=== PATIENT | female | born 1955 | race Hispanic/Latino ===

== ENCOUNTER → 2017-05-08 | Outpatient (CLI) | payer MEDICAID ==
[~2017-05-08] MED LIST: DEXA4TAB PO; ESOM40CA54 PO; FURO20TA4 PO; HYDR12.530 PO; LEVE1000 PO
== END | disposition home or self-care (01) ==
LOC: RAH 08:56
PROVIDERS: ATTEND Internal Medicine
DX: I73.9 Peripheral vascular disease, unspecified (principal); I10 Essential (primary) hypertension; M47.895 Other spondylosis, thoracolumbar region
CPT/HCPCS: 71046

== ENCOUNTER → 2017-05-26 | Outpatient (CLI) | payer MEDICAID | END | disposition home or self-care (01) | LOC: RAH 08:01 | PROVIDERS: ATTEND Urology | DX: N39.0 Urinary tract infection, site not specified (principal) | CPT/HCPCS: 74176 ==

== ENCOUNTER → 2017-06-15 | Outpatient (CLI) | payer MEDICAID | END | disposition home or self-care (01) | LOC: RAH 08:53 | PROVIDERS: ATTEND Internal Medicine | DX: Z12.31 Encounter for screening mammogram for malignant neoplasm of breast (principal) | CPT/HCPCS: 77067 ==

== ENCOUNTER → 2017-09-01 | Outpatient (CLI) | payer MEDICAID | END | disposition home or self-care (01) | LOC: OIH 10:24 | PROVIDERS: ATTEND Internal Medicine | DX: R10.9 Unspecified abdominal pain (principal) | CPT/HCPCS: 74018 ==

== ENCOUNTER → 2018-01-20 | Outpatient (CLI) | payer MEDICAID | END | disposition home or self-care (01) | LOC: OIH 11:21 | PROVIDERS: ATTEND Internal Medicine | DX: M17.0 Bilateral primary osteoarthritis of knee (principal) | CPT/HCPCS: 73560 ==

== ENCOUNTER 2018-06-10 13:54 | Emergency (ER) | payer MEDICAID ==
[2018-06-10] MEDS ORDERED: ONDANSETRON HCL 4 MG/2 ML VIAL ONE (14:23)
[2018-06-10] MEDS ORDERED: KETOROLAC TROMETHAMINE 30MG/ML ONE (14:24)
[2018-06-10 16:13] LABS: BASOPHILS % (AUTO) 0.5 % (0.0-5.0); EOSINOPHILS % (AUTO) 0.5 % (0.0-8.0); HEMATOCRIT 43.8 % (36-48); LYMPHOCYTES % (AUTO) 20.7 % (21.0-51.0); MEAN CORPUSCULAR HEMOGLOBIN 31.3 pg (27.0-33.0); MEAN CORPUSCULAR HGB CONC 32.5 g/dL (32.0-36.0); MEAN CORPUSCULAR VOLUME 96.2 fL (79-99); MONOCYTES % (AUTO) 10.6 % (3.0-13.0); NEUTROPHILS % (AUTO) 67.7 % (40.0-77.0); NUCLEATED RED BLOOD CELLS 0.2 % (0.0-0.19); PLATELET COUNT (AUTO) 291 K/uL (130-400); RED BLOOD CELL COUNT(AUTO) 4.55 MIL/uL (4.00-5.50); RED CELL DISTRIBUTION WIDTH 14.1 % (11.0-15.5); WHITE BLOOD COUNT (AUTO) 9.4 K/uL (4.8-10.8)
[2018-06-10] MEDS ORDERED: MORPHINE SULFATE 4 MG/1ML SYG ONE (16:15)
[2018-06-10] MEDS ORDERED: LIDOCAINE HCL 2% VISCOUS 15 ML UDCUP ONE (16:15)
[2018-06-10] MEDS ORDERED: MAG HYDROX/AL HYDROX/SIMETH ES 30 ML SUSP UDCUP ONE (16:15)
[2018-06-10 17:19] LABS: POTASSIUM 3.8 mmol/L (3.5-5.1)
[2018-06-10 17:24] LABS: ALBUMIN 4.2 g/dL (3.5-5.0); BILIRUBIN,TOTAL 0.4 mg/dL (0.2-1.0); TOTAL PROTEIN, SERUM 8.8 g/dL (6.0-8.3)
== END 2018-06-10 17:50 ==
LOC: EDH 13:54
DX: K52.9 Noninfective gastroenteritis and colitis, unspecified (principal); R10.13 Epigastric pain; I10 Essential (primary) hypertension; F41.9 Anxiety disorder, unspecified
CPT/HCPCS: 36415; 74176; 80053; 83690; 84484; 85025; 87804 ×2; 93005; 96361; 96374; 96375; 99284; J1885; J2270; J2405

== ENCOUNTER 2018-06-14 05:35 | Day surgery (SDC) | payer MEDICAID ==
[~2018-06-14] VITALS: Ht 152.4 cm; Wt 82.4 kg
[2018-06-14] MEDS ORDERED: SODIUM CHLORIDE 0.9% 1000ML 1,000 ML IV ONE (05:42)
[2018-06-14 06:12] VITALS: BP 168/71
[2018-06-14] MEDS ORDERED: PROPOFOL 10 MG/ML 20ML VIAL IV ONE (06:31)
[2018-06-14] MEDS ORDERED: LIDOCAINE HCL-MPF 2% 5ML VIAL ONE (06:31)
[2018-06-14] MEDS ORDERED: GLYCOPYRROLATE 0.2 MG/ML 5 ML VIAL ONE (06:31)
[2018-06-14 06:45] VITALS: BP 171/77
[2018-06-14] MEDS ORDERED: HYOS-27 SL ×2 (06:53)
[2018-06-14] MEDS ORDERED: CLAR500T PO ×2 (06:53)
[2018-06-14] MEDS ORDERED: PREG150C PO ×2 (06:53)
[2018-06-14] MEDS ORDERED: CARB100C4 PO ×2 (06:53)
[2018-06-14] MEDS ORDERED: ONDA8TAB12 PO ×2 (06:53)
[2018-06-14] MEDS ORDERED: AMOX500C2 PO ×2 (06:53)
[2018-06-14] MEDS ORDERED: DONE23TA12 PO ×2 (06:53)
== END 2018-06-14 08:00 | disposition home or self-care (01) ==
LOC: DAH 05:35 → ENDO 05:35
PROVIDERS: ATTEND Internal Medicine
DX: K44.9 Diaphragmatic hernia without obstruction or gangrene (principal); K31.89 Other diseases of stomach and duodenum; K25.9 Gastric ulcer, unspecified as acute or chronic, without hemorrhage or perforation; G40.909 Epilepsy, unspecified, not intractable, without status epilepticus; K58.9 Irritable bowel syndrome, unspecified; F41.9 Anxiety disorder, unspecified; K21.9 Gastro-esophageal reflux disease without esophagitis; Z68.32 Body mass index [BMI] 32.0-32.9, adult; Z98.890 Other specified postprocedural states; Z79.899 Other long term (current) drug therapy; K31.84 Gastroparesis; K21.0 Gastro-esophageal reflux disease with esophagitis; I10 Essential (primary) hypertension; E66.9 Obesity, unspecified
CPT/HCPCS: 43239; 88305; A4606; J2704; J3490; J7030

== ENCOUNTER 2018-07-13 08:06 | Emergency (ER) | payer MEDICAID ==
[~2018-07-13 08:06] MED LIST changes: +AMOX500C2 PO; +CARB100C4 PO; +CLAR500T PO; -DEXA4TAB PO; +DONE23TA12 PO; -FURO20TA4 PO; -HYDR12.530 PO; +HYOS-27 SL; +ONDA8TAB12 PO; +PREG150C PO
[2018-07-13 09:34] LABS: CREATININE 0.5 mg/dL (0.5-1.5); POTASSIUM 3.6 mmol/L (3.5-5.1)
[2018-07-13 09:39] LABS: ALBUMIN 3.8 g/dL (3.5-5.0); BILIRUBIN,TOTAL 0.4 mg/dL (0.2-1.0); TOTAL PROTEIN, SERUM 8.1 g/dL (6.0-8.3)
[2018-07-13] MEDS ORDERED: LIDOCAINE HCL 2% VISCOUS 15 ML UDCUP ONE (09:48)
[2018-07-13] MEDS ORDERED: MAG HYDROX/AL HYDROX/SIMETH ES 30 ML SUSP UDCUP ONE (09:48)
[2018-07-13] MEDS ORDERED: HYDRALAZINE HCL 20 MG/ML VIAL ONE (09:49)
[2018-07-13] MEDS ORDERED: PROCHLORPERAZINE EDISYLATE 10 MG/2 ML VIAL ONE (09:49)
[2018-07-13] MEDS ORDERED: DiphenhydrAMINE HCL 50 MG/ML VIAL ONE (09:49)
[2018-07-13] MEDS ORDERED: FAMOTIDINE/PF 20 MG/2 ML VIAL IV ONE (09:50)
[2018-07-13] MEDS ORDERED: SODIUM CHLORIDE 0.9% 250 ML IV ONE (10:05)
== END 2018-07-13 11:22 | disposition home or self-care (01) ==
LOC: EDH 08:06
DX: K29.00 Acute gastritis without bleeding (principal); I10 Essential (primary) hypertension; F41.9 Anxiety disorder, unspecified
CPT/HCPCS: 36415; 80053; 83690; 96374; 96375; 99283; J0780; J1200; J3490; J7030; J0360

== ENCOUNTER 2018-07-27 06:06 | Day surgery (SDC) | payer MEDICAID ==
[~2018-07-27] VITALS: Ht 160 cm; Wt 86.2 kg
[~2018-07-27 06:06] MED LIST changes: +SODIUM CHLORIDE 0.9% 1000ML 1,000 ML IV ONE
[2018-07-27 06:51] VITALS: BP 164/63
[2018-07-27] MEDS ORDERED: ALPR-410 PO (07:03)
[2018-07-27] MEDS ORDERED: HYDR12.530 PO (07:03)
[2018-07-27] MEDS ORDERED: LOSA50TA64 PO (07:03)
[2018-07-27] MEDS ORDERED: CARB400T7 PO (07:03)
[2018-07-27 07:53] VITALS: BP 146/55
[2018-07-27 07:58] VITALS: BP 160/71
[2018-07-27 08:03] VITALS: BP 154/68
[2018-07-27 08:08] VITALS: BP 156/68
[2018-07-27 08:13] VITALS: BP 156/68
--- NOTE | 2018-07-27 08:20 | NUR ---
DC DC INSTRUCTIONS GIVEN TO PT , FAMILY, INSTRUCTED TO F/U WITH DR. HERNANDEZ. PT AWAKE AND ALERT,NO DISTRESS NOTED PT WAITING FOR HER RIDE TO GO HOME. PT STABLE
== END 2018-07-27 08:30 | disposition home or self-care (01) ==
LOC: DAH 06:06
PROVIDERS: ATTEND Internal Medicine
DX: D12.3 Benign neoplasm of transverse colon (principal); K57.30 Diverticulosis of large intestine without perforation or abscess without bleeding; K64.8 Other hemorrhoids; K64.4 Residual hemorrhoidal skin tags; K63.5 Polyp of colon; G40.909 Epilepsy, unspecified, not intractable, without status epilepticus; E66.9 Obesity, unspecified; K58.9 Irritable bowel syndrome, unspecified; F41.9 Anxiety disorder, unspecified; Z79.899 Other long term (current) drug therapy; Z68.33 Body mass index [BMI] 33.0-33.9, adult; Z98.890 Other specified postprocedural states; K21.0 Gastro-esophageal reflux disease with esophagitis; I10 Essential (primary) hypertension
CPT/HCPCS: 45380; 45385; 88305; A4606; J7030

== ENCOUNTER → 2018-10-26 | Outpatient (CLI) | payer MEDICAID ==
[~2018-10-26] MED LIST changes: +ALPR-410 PO; -AMOX500C2 PO; -CARB100C4 PO; +CARB400T7 PO; -CLAR500T PO; -ESOM40CA54 PO; +HYDR12.530 PO; -HYOS-27 SL; +LOSA50TA64 PO; -ONDA8TAB12 PO; -SODIUM CHLORIDE 0.9% 1000ML 1,000 ML IV ONE
== END | disposition home or self-care (01) ==
LOC: RAH 10:00
PROVIDERS: ATTEND Neuromusculoskeletal Medicine & OMM
DX: M47.812 Spondylosis without myelopathy or radiculopathy, cervical region (principal); M47.814 Spondylosis without myelopathy or radiculopathy, thoracic region; M47.816 Spondylosis without myelopathy or radiculopathy, lumbar region; M47.817 Spondylosis without myelopathy or radiculopathy, lumbosacral region; M85.88 Other specified disorders of bone density and structure, other site; M25.78 Osteophyte, vertebrae
CPT/HCPCS: 72040; 72072; 72100

== ENCOUNTER → 2018-11-23 | Outpatient (CLI) | payer MEDICAID | END | disposition home or self-care (01) | LOC: RAH 06:55 | PROVIDERS: ATTEND Internal Medicine | DX: R93.3 Abnormal findings on diagnostic imaging of other parts of digestive tract (principal); R19.7 Diarrhea, unspecified | CPT/HCPCS: 78227; A9537 ==

== ENCOUNTER → 2019-02-24 | Outpatient (CLI) | payer MEDICAID | END | disposition home or self-care (01) | LOC: RAH 07:09 | PROVIDERS: ATTEND Internal Medicine | DX: R11.0 Nausea (principal); F41.9 Anxiety disorder, unspecified; F32.9 Major depressive disorder, single episode, unspecified; G40.909 Epilepsy, unspecified, not intractable, without status epilepticus | CPT/HCPCS: 74240 ==

== ENCOUNTER → 2021-04-10 | Outpatient (CLI) | payer MEDICARE ==
[~2021-04-10] MED LIST changes: -DONE23TA12 PO; +DONE23TA14 PO
== END | disposition home or self-care (01) ==
LOC: RAH 10:55
PROVIDERS: ATTEND Internal Medicine
DX: M47.812 Spondylosis without myelopathy or radiculopathy, cervical region (principal); M62.838 Other muscle spasm
CPT/HCPCS: 72040

== ENCOUNTER → 2021-06-11 | Outpatient (CLI) | payer MEDICARE | END | disposition home or self-care (01) | LOC: RAH 11:01 | PROVIDERS: ATTEND Internal Medicine | DX: I10 Essential (primary) hypertension (principal); Z96.82 Presence of neurostimulator | CPT/HCPCS: 71046 ==

== ENCOUNTER → 2021-12-02 | Outpatient (CLI) | payer MEDICARE | END | disposition home or self-care (01) | LOC: RAH 10:10 | PROVIDERS: ATTEND Internal Medicine | DX: Z12.31 Encounter for screening mammogram for malignant neoplasm of breast (principal) | CPT/HCPCS: 77067 ==

== ENCOUNTER 2022-10-20 14:15 | Emergency (ER) | payer MEDICARE ==
[~2022-10-20] VITALS: Ht 142.2 cm; Wt 85.3 kg
[2022-10-20 15:01] LABS: EOSINOPHILS % (AUTO) 3.9 % (0.0-8.0); HEMATOCRIT 39.6 % (36-48); LYMPHOCYTES % (AUTO) 42.5 % (21.0-51.0); MEAN CORPUSCULAR HEMOGLOBIN 30.2 pg (27.0-33.0); MEAN CORPUSCULAR HGB CONC 31.8 g/dL (32.0-36.0); MONOCYTES % (AUTO) 9.3 % (3.0-13.0); NEUTROPHILS % (AUTO) 42.8 % (40.0-77.0); PLATELET COUNT (AUTO) 359 K/uL (130-400); RED BLOOD CELL COUNT(AUTO) 4.17 MIL/uL (4.00-5.50); WHITE BLOOD COUNT (AUTO) 8.2 K/uL (4.8-10.8)
[2022-10-20 15:21] LABS: CREATININE 0.8 mg/dL (0.5-1.5)
[2022-10-20 15:25] LABS: ALBUMIN 3.4 g/dL (3.5-5.0); TOTAL PROTEIN, SERUM 7.4 g/dL (6.0-8.3)
[2022-10-20] MEDS ORDERED: PREDNISONE 20 MG TABLET PO ONE (16:30)
[2022-10-20] MEDS ORDERED: HYDROCODONE/ACETAMINOPHEN 5/325 MG TAB PO ONE (16:30)
[2022-10-20] MEDS ORDERED: DIAZEPAM 5 MG TABLET PO ONE (16:30)
[2022-10-20] MEDS ORDERED: LIDOCAINE 4% ADH..PATCH TP ONE (16:30)
[2022-10-20] MEDS ORDERED: IBUPROFEN 600 MG TABLET PO ONE (16:30)
[2022-10-20 16:46] VITALS: BP 158/94
[2022-10-20] MEDS ORDERED: LIDOCAINE 5% TOPICAL PATCH TP ONE (16:50)
[2022-10-20 17:31] LABS: APPEARANCE,URINE CLOUDY (CLEAR); BILIRUBIN,URINE NEGATIVE (NEGATIVE); COLOR,URINE YELLOW (YELLOW); GLUCOSE, URINE (UA) NEGATIVE (NEGATIVE); KETONES,URINE NEGATIVE (NEGATIVE); LEUKOCYTE ESTERASE ,URINE 250 Leu/uL (NEGATIVE); NITRATE,URINE NEGATIVE (NEGATIVE); OCCULT BLOOD,URINE NEGATIVE (NEGATIVE); PROTEIN,URINE 30 mg/dL (NEGATIVE); UROBILINOGEN,URINE 0.2 mg/dL (0.2-1.0)
[2022-10-20 17:48] LABS: BACTERIA,URINE RARE /HPF (None Seen); MUCUS,URINE RARE LPF (None Seen); SQUAMOUS EPITHELIAL CELL,UR MOD /HPF (0-2)
[2022-10-20] MEDS ORDERED: IBUP-2070 PO (18:48)
[2022-10-20] MEDS ORDERED: PRED20TA3 PO (18:48)
[2022-10-20] MEDS ORDERED: METH-811 PO (18:48)
== END 2022-10-20 19:02 | disposition home or self-care (01) ==
LOC: EDH 14:15
DX: S80.02XA Contusion of left knee, initial encounter (principal); M54.50 Low back pain, unspecified; M19.90 Unspecified osteoarthritis, unspecified site; Z79.899 Other long term (current) drug therapy; W18.30XA Fall on same level, unspecified, initial encounter; Y93.89 Activity, other specified; Y92.89 Other specified places as the place of occurrence of the external cause; Y99.8 Other external cause status
CPT/HCPCS: 36415; 72100; 73562; 80053; 81001; 85025; 87088

== ENCOUNTER 2022-11-12 10:04 | Emergency (ER) | payer MEDICARE ==
[~2022-11-12] VITALS: Ht 134.6 cm; Wt 81.2 kg
[~2022-11-12 10:04] MED LIST changes: +IBUP-2070 PO; +METH-811 PO; +PRED20TA3 PO
[2022-11-12 10:50] LABS: BASOPHILS % (AUTO) 0.9 % (0.0-5.0); EOSINOPHILS % (AUTO) 5.7 % (0.0-8.0); HEMATOCRIT 42.7 % (36-48); LYMPHOCYTES % (AUTO) 38.2 % (21.0-51.0); MEAN CORPUSCULAR HEMOGLOBIN 30.1 pg (27.0-33.0); MEAN CORPUSCULAR HGB CONC 32.3 g/dL (32.0-36.0); MEAN CORPUSCULAR VOLUME 93.2 fL (79-99); MONOCYTES % (AUTO) 7.5 % (3.0-13.0); NEUTROPHILS % (AUTO) 47.3 % (40.0-77.0); PLATELET COUNT (AUTO) 356 K/uL (130-400); RED BLOOD CELL COUNT(AUTO) 4.58 MIL/uL (4.00-5.50); RED CELL DISTRIBUTION WIDTH 12.8 % (11.0-15.5); WHITE BLOOD COUNT (AUTO) 7.5 K/uL (4.8-10.8)
[2022-11-12 10:53] VITALS: BP 135/50; PULSE 92; RESP 20; O2SAT 97
[2022-11-12 10:55] LABS: APPEARANCE,URINE CLEAR (CLEAR); BILIRUBIN,URINE SMALL mg/dL (NEGATIVE); COLOR,URINE YELLOW (YELLOW); GLUCOSE, URINE (UA) NEGATIVE (NEGATIVE); KETONES,URINE 5 mg/dL (NEGATIVE); LEUKOCYTE ESTERASE ,URINE NEGATIVE Leu/uL (NEGATIVE); NITRATE,URINE NEGATIVE (NEGATIVE); OCCULT BLOOD,URINE NEGATIVE (NEGATIVE); PH,URINE 6.5 (5.0-8.0); PROTEIN,URINE TRACE mg/dL (NEGATIVE); UROBILINOGEN,URINE 0.2 mg/dL (0.2-1.0)
[2022-11-12 11:03] LABS: CREATININE 0.8 mg/dL (0.5-1.5)
[2022-11-12 11:08] LABS: ALBUMIN 3.9 g/dL (3.5-5.0); TOTAL PROTEIN, SERUM 8.4 g/dL (6.0-8.3)
[2022-11-12 11:22] LABS: RBC,URINE 0-1 /HPF (0-1)
[2022-11-12 11:23] LABS: BACTERIA,URINE Rare /HPF (None Seen); SQUAMOUS EPITHELIAL CELL,UR Rare /HPF (0-2); WBC,URINE 0-1 /HPF (0-1)
[2022-11-12] MEDS ORDERED: ONDANSETRON ODT 4MG TAB SL ONE (11:30)
[2022-11-12] MEDS ORDERED: KETOROLAC 30MG VIAL (30MG/ML) IM ONE (12:30)
[2022-11-12] MEDS ORDERED: OMEP40CA21 PO (12:59)
[2022-11-12] MEDS ORDERED: ONDA4TAB10 PO (12:59)
[2022-11-12] MEDS ORDERED: PANTOPRAZOLE 40 MG TAB DR PO SCH (13:00)
[2022-11-12] MEDS ORDERED: NAPR-1196 PO (13:01)
== END 2022-11-12 13:23 | disposition home or self-care (01) ==
LOC: EDH 10:04
DX: R10.13 Epigastric pain (principal); M54.50 Low back pain, unspecified; M19.90 Unspecified osteoarthritis, unspecified site; E66.9 Obesity, unspecified; I10 Essential (primary) hypertension; Z79.52 Long term (current) use of systemic steroids; Z79.899 Other long term (current) drug therapy; Z68.41 Body mass index [BMI] 40.0-44.9, adult
CPT/HCPCS: 99285; 74176; 80053; 83690; 85025; 81001; 36415; 96372; J1885

== ENCOUNTER → 2023-06-04 | Outpatient (CLI) | payer MEDICARE ==
[~2023-06-04] MED LIST changes: +NAPR-1196 PO; +OMEP40CA21 PO; +ONDA4TAB10 PO
== END | disposition home or self-care (01) ==
LOC: OIH 10:11
PROVIDERS: ATTEND Internal Medicine
DX: Z01.818 Encounter for other preprocedural examination (principal); I10 Essential (primary) hypertension; M47.814 Spondylosis without myelopathy or radiculopathy, thoracic region
CPT/HCPCS: 71046

== ENCOUNTER 2024-06-07 10:03 | Emergency (ER) | payer MEDICARE ==
[~2024-06-07] VITALS: Ht 162.6 cm; Wt 83.5 kg
[~2024-06-07 10:03] MED LIST changes: +CARB400T13 PO; -CARB400T7 PO; +ONDA-243 PO; -ONDA4TAB10 PO
[2024-06-07 11:41] LABS: BASOPHILS # (AUTO) 0.05 K/uL (0.00-0.20); BASOPHILS % (AUTO) 0.6 % (0.0-5.0); EOSINOPHILS # (AUTO) 0.16 K/uL (0.00-0.70); EOSINOPHILS % (AUTO) 1.8 % (0.0-8.0); HEMATOCRIT 42.4 % (36-48); IMMATURE GRANULOCYTE ABSOLUTE 0.02 K/uL (0-1); LYMPHOCYTES # (AUTO) 2.8 K/uL (1.0-4.8); LYMPHOCYTES % (AUTO) 31.6 % (21.0-51.0); MEAN CORPUSCULAR HEMOGLOBIN 30.8 pg (27.0-33.0); MEAN CORPUSCULAR HGB CONC 32.1 g/dL (32.0-36.0); MEAN CORPUSCULAR VOLUME 96.1 fL (79-99); MONOCYTES # (AUTO) 0.8 K/uL (0.1-1.0); MONOCYTES % (AUTO) 8.6 % (3.0-13.0); NEUTROPHILS % (AUTO) 57.2 % (40.0-77.0); PLATELET COUNT (AUTO) 319 K/uL (130-400); RED BLOOD CELL COUNT(AUTO) 4.41 MIL/uL (4.00-5.50); RED CELL DISTRIBUTION WIDTH 12.5 % (11.0-15.5); WHITE BLOOD COUNT (AUTO) 8.7 K/uL (4.8-10.8)
[2024-06-07 11:49] LABS: CREATININE 0.8 mg/dL (0.5-1.0); POTASSIUM 4.3 mmol/L (3.5-5.1)
[2024-06-07 11:54] LABS: BACTERIA,URINE RARE /HPF (None Seen); BILIRUBIN,URINE NEGATIVE (NEGATIVE); COLOR,URINE YELLOW (YELLOW); GLUCOSE, URINE (UA) NEGATIVE (NEGATIVE); KETONES,URINE NEGATIVE (NEGATIVE); LEUKOCYTE ESTERASE ,URINE NEGATIVE Leu/uL (NEGATIVE); MUCUS,URINE FEW LPF (None Seen); NITRATE,URINE NEGATIVE (NEGATIVE); OCCULT BLOOD,URINE NEGATIVE (NEGATIVE); PH,URINE 6.5 (5.0-8.0); PROTEIN,URINE 50 mg/dL (NEGATIVE); SQUAMOUS EPITHELIAL CELL,UR MANY /HPF (0-2); UNCLASSIFIED CRYSTAL 4 /HPF (None Seen); UROBILINOGEN,URINE 0.2 mg/dL (0.2-1.0)
[2024-06-07 11:56] LABS: APPEARANCE,URINE HAZY (CLEAR)
--- NOTE | 2024-06-07 12:31 | HMCIMG ---
CT ABDOMEN/PELVIS W/O CONTRAST REASON: Flank pain COMPARISON: 11/12/2022 FINDINGS: Lung bases are clear. There are no focal liver lesions. There are normal-appearing kidneys.. Spleen and pancreas appear unremarkable. The gallbladder appears normal as well. Bowel loops appear unremarkable. There is no CT evidence of acute appendicitis. There is no evidence of free fluid or intraperitoneal air. There are no focal fluid collections. Aorta and retroperitoneum appear normal as do pelvic soft tissue structures. The anterior abdominal wall is intact. Osseous structures appear unremarkable. IMPRESSION: 1. Negative noncontrast CT abdomen and pelvis. CT was performed with one or more following dose reduction techniques: automated exposure control, adjustment of the mA and kv according to patient's size, or use of a iterative reconstruction technique.
--- NOTE | 2024-06-07 14:07 | ERN ---
General Chief Complaint: UTI without Fever Stated Complaint: UTI Time Seen by MD: 10:07 History of Present Illness Allergies: Coded Allergies: No Allergy Information Available (Verified Allergy, Unknown, 12/10/16) No Known Drug Allergies (Unverified Allergy, Unknown, 01/22/17) Home Meds Active Scripts Naproxen (Naproxen) 250 Mg Tablet, 250 MG PO BID PRN for PAIN, #15 TAB 0 Refills Prov:FRANCISCA ROBERTS [employer] 11/12/22 Omeprazole (Omeprazole) 40 Mg Capsule.dr, 40 MG PO BID, #28 CAP 0 Refills Prov:FRANCISCA ROBERTS Akash [employer] 11/12/22 Ondansetron (Ondansetron Odt) 4 Mg Tab.rapdis, 4 MG PO Q6HPRN for nausea/vomiting, #20 TAB 0 Refills Prov:FRANCISCA ROBERTS [employer] 11/12/22 Ibuprofen (Ibuprofen) 600 Mg Tablet, 600 MG PO Q6H PRN for PAIN, #30 TAB Prov:ROSA THIBODEAUX [facility] 10/20/22 Methocarbamol (Methocarbamol) 500 Mg Tablet, 500 MG PO BID PRN for BACK PAIN, #30 TAB Prov:ROSA THIBODEAUX [facility] 10/20/22 Prednisone (Prednisone) 20 Mg Tablet, 2 TAB PO DAILY for 5 Days, #10 TAB 0 Refills Prov:ROSA THIBODEAUX [facility] 10/20/22 Reported Medications Hydrochlorothiazide (Hydrochlorothiazide) 12.5 Mg Capsule, 12.5 MG PO DAILY, CAP 07/27/18 Losartan Potassium (Losartan Potassium) 50 Mg Tablet, 50 MG PO DAILY, TAB 07/27/18 Carbamazepine (Carbamazepine ER) 400 Mg Tab.er.12h, 400 MG PO BID, TAB 07/27/18 Alprazolam (Alprazolam) 0.5 Mg Tab.rapdis, 0.5 MG PO BID, TAB 07/27/18 Donepezil HCl (Donepezil HCl) 23 Mg Tablet, 23 MG PO DAILY, TAB 06/14/18 Pregabalin (Lyrica) 150 Mg Capsule, 150 MG PO TID, CAP 06/14/18 Levetiracetam (Keppra) 1,000 Mg Tablet, 1000 MG PO BID, TAB 09/21/16 Past Medical History Past Medical History: Arthritis, High Cholesterol, Hypertension, Seizure, Other Past Surgical History: Other Surgical History Other: NERVE STIMULATOR Family History Family History: Negative Social History Social History: Negative, Lives with family Results Laboratory and Microbiology Lab and Micro Result Laboratory Tests Test 06/07/24 11:22 06/07/24 11:24 White Blood Count 8.7 K/uL (4.8-10.8) Red Blood Count 4.41 MIL/uL (4.00-5.50) Hemoglobin 13.6 g/dL (12.0-16.0) Hematocrit 42.4 % (36-48) Mean Corpuscular Volume 96.1 fL (79-99) Mean Corpuscular Hemoglobin 30.8 pg (27.0-33.0) Mean Corpuscular Hemoglobin Concent 32.1 g/dL (32.0-36.0) Red Cell Distribution Width 12.5 % (11.0-15.5) Platelet Count 319 K/uL (130-400) Mean Platelet Volume 9.7 fL (7.5-10.5) Immature Granulocyte % (Auto) 0.2 % (0-1) Neutrophils (%) (Auto) 57.2 % (40.0-77.0) Lymphocytes (%) (Auto) 31.6 % (21.0-51.0) Monocytes (%) (Auto) 8.6 % (3.0-13.0) Eosinophils (%) (Auto) 1.8 % (0.0-8.0) Basophils (%) (Auto) 0.6 % (0.0-5.0) Neutrophils # (Auto) 5.0 K/uL (1.8-7.7) Lymphocytes # (Auto) 2.8 K/uL (1.0-4.8) Monocytes # (Auto) 0.8 K/uL (0.1-1.0) Eosinophils # (Auto) 0.16 K/uL (0.00-0.70) Basophils # (Auto) 0.05 K/uL (0.00-0.20) Absolute Immature Granulocyte (auto 0.02 K/uL (0-1) Nucleated Red Blood Cells 0.0 % (0.0-0.19) Sodium Level 139 mmol/L (136-145) Potassium Level 4.3 mmol/L (3.5-5.1) Chloride Level 103 mmol/L (101-111) Carbon Dioxide Level 28 mmol/L (21-32) Blood Urea Nitrogen 9 mg/dL (7-18) Creatinine 0.8 mg/dL (0.5-1.0) Glomerular Filtration Rate Calc 80 mL/min (>90) Random Glucose 107 mg/dL (70-105) H Total Calcium 9.4 mg/dL (8.5-10.1) Urine Color YELLOW (YELLOW) Urine Appearance HAZY (CLEAR) Urine pH 6.5 (5.0-8.0) Urine Specific Iron 1.025 (1.001-1.031) Urine Protein 50 mg/dL (NEGATIVE) H Urine Glucose (UA) NEGATIVE mg/dL (NEGATIVE) Urine Ketones NEGATIVE mg/dL (NEGATIVE) Urine Occult Blood NEGATIVE (NEGATIVE) Urine Nitrate NEGATIVE (NEGATIVE) Urine Bilirubin NEGATIVE mg/dL (NEGATIVE) Urine Urobilinogen 0.2 mg/dL (0.2-1.0) Urine Leukocyte Esterase NEGATIVE Pavel/uL Urine RBC 2-5 /HPF (0-1) H Urine WBC 2-5 /HPF (0-1) H Urine Squamous Epithelial Cells MANY /HPF (0-2) Urine Other Crystals (Auto) 4 /HPF (None Seen) Urine Bacteria RARE /HPF (None Seen) Urine Hyaline Casts 2-5 /LPF (0-1 /LPF) H ED Course Orders Procedure Category Date Status Time Urinalysis LAB 06/07/24 Complete W/Microscopic 10:55 Cbc With Differential LAB 06/07/24 Complete 10:55 Basic Metabolic Panel LAB 06/07/24 Complete 10:55 Bladder Scan CPOE 06/07/24 Transmitted 10:55 Ct Abdomen/Pelvis W/O CT 06/07/24 Resulted Contrast 10:55 Vital Signs Date Time Temp Pulse Resp B/P (MAP) Pulse Ox O2 Delivery O2 Flow Rate FiO2 06/07/24 10:50 97.0 73 20 131/81 96 Room Air 0 DX & DISP Disposition: Discharge Departure Impression: Primary Impression: Urinary problem Condition: Stable Additional Instructions: Discharge home. Rest. Follow up with primary care in 24 hours. Return to the ER for any acute changes or worsening symptoms. If any medications were prescribed take as directed. Okay to continue home medications unless otherwise discussed during your visit in the emergency room today. Patient was also advised to follow-up with primary care physician in 1 to 2 days for continued monitoring. Referrals: KD DUNLAP MD (PCP) I participated in the following activities of this patient's care: For this patient encounter, I reviewed the PA or TOP SPOTTER documentation, treatment plan, and medical decision making. I did not have [id number] time with this patient. I will sign as the reviewing Dr. And agree with the treatment plan and disposition. MIGNON NEELY Jun 07, 2024 14:07
[2024-06-07 14:20] VITALS: BP 127/76; PULSE 72; RESP 20; TEMP 97.6; O2SAT 96
== END 2024-06-07 14:26 | disposition home or self-care (01) ==
LOC: EDH 10:03
DX: N39.0 Urinary tract infection, site not specified (principal); M19.90 Unspecified osteoarthritis, unspecified site; E78.00 Pure hypercholesterolemia, unspecified; I10 Essential (primary) hypertension; Z79.52 Long term (current) use of systemic steroids; Z79.899 Other long term (current) drug therapy
CPT/HCPCS: 36415; 74176; 80048; 81001; 85025; 99284

== ENCOUNTER → 2024-11-02 | Outpatient (CLI) | payer MEDICARE | END | disposition home or self-care (01) | LOC: RAH 09:17 | PROVIDERS: ATTEND Internal Medicine | DX: Z12.31 Encounter for screening mammogram for malignant neoplasm of breast (principal) | CPT/HCPCS: 77067 ==

== ENCOUNTER → 2024-11-24 | Outpatient (CLI) | payer MEDICARE, MEDICAID ==
[~2024-11-24] MED LIST changes: +IBUP-1492 PO; -IBUP-2070 PO
--- NOTE | 2024-11-25 08:18 | HMCIMG ---
EXAMINATION: ULTRASOUND OF THE THYROID. CLINICAL HISTORY: Non-toxic thyroid nodule. COMPARISON: None. TECHNIQUE: Transverse and longitudinal images were obtained through both lobes and the isthmus of the thyroid. FINDINGS: The thyroid gland is normal in caliber with homogenous tissue echotexture. The right thyroid lobe measures 4.3 x 1.2 x 1.1 cm and the left thyroid lobe measures 3.4 x 1.0 x 1.1 cm in the craniocaudal, AP, and transverse dimensions respectively. The isthmus measures 0.4 cm in AP dimension. Right lobe: There is a cystic nodule that measures 0.6 x 0.3 x 0.4 cm at the upper pole (TR1). There is a cystic nodule that measures 0.3 x 0.2 x 0.2 cm at the upper pole (TR1). There is a cystic nodule that measures 0.3 x 0.2 x 0.2 cm at the mid pole (TR1). There is a hypoechoic mixed solid cystic nodule that measures 0.4 x 0.2 x 0.4 cm at the mid pole (TR3). Left lobe: There are no focal lesions. No significantly enlarged lymph nodes. IMPRESSION: Nodules in the right lobe of the thyroid. TI-RADS follow up recommendations: TR1: no FNA required TR2: no FNA required TR3: more than or equal to 1.5 cm follow up, more than or equal to 2.5 cm FNA follow up: 1, 3 and 5 years TR4: more than or equal to 1.0 cm follow up, more than or equal to 1.5 cm FNA follow up: 1, 2, 3 and 5 years TR5: more than or equal to 0.5 cm follow up, more than or equal to 1.0 cm FNA annual follow up for up to 5 years /[place]
== END | disposition home or self-care (01) ==
LOC: RAH 08:24
PROVIDERS: ATTEND Internal Medicine
DX: E04.2 Nontoxic multinodular goiter (principal)
CPT/HCPCS: 76536

== ENCOUNTER → 2025-01-31 | Outpatient (CLI) | payer MEDICARE, MEDICAID ==
[2025-01-31 11:05] LABS: APPEARANCE,URINE CLOUDY (CLEAR); GLUCOSE, URINE (UA) NEGATIVE (NEGATIVE); LEUKOCYTE ESTERASE ,URINE 250 Leu/uL (NEGATIVE); NITRATE,URINE NEGATIVE (NEGATIVE); OCCULT BLOOD,URINE NEGATIVE (NEGATIVE)
[2025-01-31 11:08] LABS: IMMATURE GRANULOCYTE ABSOLUTE 0.03 K/uL (0-1); NUCLEATED RED BLOOD CELLS 0.0 % (0.0-0.19); PLATELET COUNT (AUTO) 307 K/uL (130-400); RED BLOOD CELL COUNT(AUTO) 4.22 MIL/uL (4.00-5.50); RED CELL DISTRIBUTION WIDTH 12.6 % (11.0-15.5); WHITE BLOOD COUNT (AUTO) 6.4 K/uL (4.8-10.8)
[2025-01-31 11:10] LABS: ADD UA MICROSCOPIC YES
[2025-01-31 11:12] LABS: ERYTHROCYTE SEDIMENTATION RATE 10 MM/HR (0-30)
[2025-01-31 11:21] LABS: SQUAMOUS EPITHELIAL CELL,UR MANY /HPF (0-2); YEAST,URINE BUDDING FEW /HPF (None Seen)
[2025-01-31 11:29] LABS: ASPARTATE AMINOTRANSFERASE 17.0 U/L (10-37); CREATININE 0.6 mg/dL (0.5-1.0); GLOMERULAR FILTR. RATE CALC 97.0 mL/min (>90); GLUCOSE,RANDOM 97.0 mg/dL (70-105); SODIUM SERUM 141.0 mmol/L (136-145); TOTAL PROTEIN, SERUM 7.9 g/dL (6.0-8.3); UREA NITROGEN, BLOOD 20.0 mg/dL (7-18)
--- NOTE | 2025-01-31 15:29 | HMCIMG ---
EXAM: CR Chest, 2 View. CLINICAL HISTORY: CHRONIC COUGH COMPARISON: None provided. FINDINGS: LUNGS: There is no mass, infiltrate, or acute pulmonary abnormality. PLEURAL SPACES: No evidence of pleural effusion or pneumothorax. MEDIASTINUM: Stimulator device overlies the left hemithorax. The cardiomediastinal silhouette is within normal limits. BONES: No aggressive appearing osseous lesion seen. IMPRESSION: No acute cardiopulmonary pathology is evident. /[place]
== END | disposition home or self-care (01) ==
LOC: RAH 10:17
PROVIDERS: ATTEND Internal Medicine
DX: R05.1 Acute cough (principal); F41.1 Generalized anxiety disorder; G30.0 Alzheimer's disease with early onset; I11.0 Hypertensive heart disease with heart failure; I50.9 Heart failure, unspecified; Z13.21 Encounter for screening for nutritional disorder; R79.89 Other specified abnormal findings of blood chemistry; R54 Age-related physical debility; Z79.899 Other long term (current) drug therapy
CPT/HCPCS: 36415; 71046; 80053; 81001; 82140; 82607; 83880; 84443; 85025; 85651; 86140; 87086

== ENCOUNTER → 2025-03-29 | Outpatient (CLI) | payer MEDICARE ==
--- NOTE | 2025-03-30 00:15 | HMCIMG ---
EXAM: CT SCAN OF THE CERVICAL SPINE WITHOUT CONTRAST CLINICAL HISTORY: Trigeminal neuralgia and cervical radiculopathy. TECHNIQUE: Axial CT images of the cervical spine were obtained without intravenous contrast with multiplanar reformations in sagittal and coronal planes. RADIATION DOSE: CTDIvol 17.40 mGy; DLP 474.60 mGycm. CONTRAST: No intravenous contrast administered. COMPARISON: Ultrasound of the thyroid and neck from 11/24/2024 at 08:33 EDT. FINDINGS: Cervical lordosis: Normal cervical lordosis is maintained. Vertebral bodies: Vertebral body heights are preserved from the skull base through T1 without acute compression fracture or listhesis. Mild osteopenia is present. Disc spaces: Intervertebral disc heights are maintained from C2C6. Mild disc height reduction is noted at C7T1. No vacuum disc phenomenon is identified. Posterior elements and facet joints: Posterior elements are intact. Facet joints are generally well preserved with mild degenerative change, most notable at C4C5 where facet hypertrophy is present. No facet subluxation. Spinal canal: Bony spinal canal caliber is within normal limits at all cervical levels. No significant central canal stenosis. Neural foramina: Neural foramina are patent at most levels. At C4C5, there is moderate narrowing of the right neural foramen with probable impingement of the exiting right C5 nerve root. Level by level: C2C3: Mild annular disc bulge with preserved disc height. Spinal canal caliber is normal. Facet joints are preserved. No significant canal or foraminal stenosis. C3C4: Disc height is preserved. No focal disc herniation. Canal caliber and neural foramina are within normal limits. Facet joints are preserved. C4C5: Disc height is preserved. Mild diffuse disc bulge with associated facet hypertrophy, resulting in moderate right neural foraminal stenosis and likely contact/impingement of the exiting right C5 nerve root. No significant central canal stenosis. C5C6: Disc height preserved. No significant disc bulge or herniation. Spinal canal and foramina are of normal caliber. C6C7: Disc height preserved. No significant disc bulge, canal stenosis, or foraminal narrowing. C7T1: Mild disc height reduction. Spinal canal caliber is normal. Facet joints are preserved. No significant canal or foraminal stenosis. Cervical spinal cord: Contour and caliber of the cervical spinal cord are normal on CT. No intrinsic cord abnormality is appreciable on this modality. Paraspinal soft tissues: Prevertebral and paraspinal soft tissues are within normal limits. No prevertebral fluid collection or soft tissue mass. Other findings: * Enlarged, CSF-attenuation sellar appearance consistent with an empty sella configuration. * CSF-density prominence along the bilateral middle cranial fossae, which may represent arachnoid cysts versus prominent extra-axial CSF spaces. * Thyroid gland appears normal in size and attenuation. * Nerve stimulator leads are seen in the left infrahyoid neck region. 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 IMPRESSION: * Mild multilevel cervical spondylosis with moderate right C4C5 neural foraminal stenosis and likely impingement of the exiting right C5 nerve root, which may correlate with the reported cervical radiculopathy. No significant central canal stenosis. MRI of the cervical spine is recommended if there are persistent or progressive radicular symptoms or neurologic deficits. * Enlarged empty sella configuration and CSF-density prominence along the bilateral middle cranial fossae, which may represent arachnoid cysts versus prominent extra-axial CSF spaces. These are likely benign but incompletely characterized on CT; in the setting of trigeminal neuralgia, MRI of the brain with attention to the posterior fossa and trigeminal nerve pathways is recommended for further evaluation if not previously performed. * Mild osteopenia without acute fracture, malalignment, or high-grade canal or foraminal stenosis elsewhere in the cervical spine. * Incidental findings of normal thyroid gland, nerve stimulator leads in the left infrahyoid neck, and bilateral osmel bullosa of the middle nasal turbinates, without acute abnormality. /[place]
== END | disposition home or self-care (01) ==
LOC: RAH 09:22
PROVIDERS: ATTEND Internal Medicine
DX: M47.22 Other spondylosis with radiculopathy, cervical region (principal); M85.88 Other specified disorders of bone density and structure, other site; M48.02 Spinal stenosis, cervical region; M50.13 Cervical disc disorder with radiculopathy, cervicothoracic region; M50.11 Cervical disc disorder with radiculopathy, high cervical region; M50.121 Cervical disc disorder at C4-C5 level with radiculopathy; G50.0 Trigeminal neuralgia; N39.0 Urinary tract infection, site not specified; F41.1 Generalized anxiety disorder; G40.909 Epilepsy, unspecified, not intractable, without status epilepticus
CPT/HCPCS: 72125